=== PATIENT | male | born 1970 | race African-American/Black ===

== ENCOUNTER → 2016-10-26 | Outpatient (CLI) | payer BC ==
[2016-10-26 08:03] LABS: BASOPHILS % (AUTO) 1 % (0-2); EOSINOPHILS # (AUTO) 0.2 10^3uL; EOSINOPHILS % (AUTO) 4 % (0-4); LYMPHOCYTES # (AUTO) 1.7 X10^3; MEAN CORPUSCULAR HEMOGLOBIN 28.2 PG (26.0-34.0); MEAN CORPUSCULAR HGB CONC 33.8 g/dL (31.0-37.0); MEAN CORPUSCULAR VOLUME 84 FL (80-100); MEAN PLATELET VOLUME 9.7 FL (6.0-9.5); MONOCYTES # (AUTO) 0.3 X10^3; MONOCYTES % (AUTO) 6 % (3-11); NEUTROPHILS # (AUTO) 2.3 X10^3; NEUTROPHILS % (AUTO) 52 % (51-67); PLATELET COUNT 244 10^3uL (150-450); WHITE BLOOD COUNT 4.43 10^3uL (4.0-11.0)
[2016-10-26 08:18] LABS: ALKALINE PHOSPHATASE 56 U/L (38-126); ANION GAP 15.6 MEQ/L (3-15); BUN/CREATININE RATIO 14 (10-20); CALCULATED IONIZED CALCIUM 4.4 mg/dL (3.8-4.6); TOTAL PROTEIN 7.6 g/dL (6.4-8.5)
[2016-10-26 15:11] LABS: HEPATITIS B SURFACE ANTIGEN C Negative; Hepatitis B Core Total Negative
== END ==
LOC: LAB 07:39
PROVIDERS: ATTEND Family Medicine
DX: Z00.00 Encounter for general adult medical examination without abnormal findings (principal)
CPT/HCPCS: 36415; 80053; 80061; 82306; 83036; 84436; 84443; 85025; 86704; 86706; 86803; 87340

== ENCOUNTER → 2017-01-25 | Outpatient (CLI) | payer BC ==
--- NOTE | 2017-01-25 11:50 | Diagnostic Imaging Report ---
INDICATION: Left scrotal pain. FINDINGS: There are bilateral hydroceles. Testes are symmetric and within normal limits for size. There is bilateral testicular blood flow without intratesticular mass identified. This may reflect 1.1 cm in diameter cyst in the head of left epididymis. Otherwise, no extratesticular mass is identified. IMPRESSION: Bilateral hydroceles with 1.1 cm cyst in the head of the left epididymis. No solid mass or obstruction to vascular flow is identified. Dictated by: Dictated on workstation # [id number]
== END ==
LOC: RAD 10:40
PROVIDERS: ATTEND Family Medicine
DX: N50.82 Scrotal pain (principal); N43.2 Other hydrocele
CPT/HCPCS: 76870